=== PATIENT | female | born 1980 | race Hispanic/Latino ===

== ENCOUNTER 2019-01-22 16:13 | Outpatient (CLI) | payer BC ==
--- NOTE | 2019-01-22 16:49 | ULT ---
Ultrasound pelvic transabdominal with Doppler HISTORY: Pelvic pain COMPARISON: None TECHNIQUE: Multiple grayscale and color Doppler images were obtained in a transabdominal pelvic ultra sound. Spectral analysis of the Doppler waveforms of the ovaries were performed. FINDINGS: CERVIX: Unremarkable UTERUS: Normal in size without focal abnormality. ENDOMETRIAL STRIPE: 12 mm. Thickened. No free fluid is present. RIGHT OVARY: Normal flow, without focal mass. Benign-appearing cyst is present. LEFT OVARY: Normal flow, without focal mass. IMPRESSION: Mild thickening of the endometrium. This may be physiologic. Six-week pelvic ultrasound i s recommended for further evaluation.
== END 2019-01-22 16:14 | disposition home or self-care (01) ==
LOC: SCSULT 16:13
PROVIDERS: ATTEND Specialist
DX: R10.2 Pelvic and perineal pain (principal); R93.89 Abnormal findings on diagnostic imaging of other specified body structures
CPT/HCPCS: 76856

== ENCOUNTER 2019-01-26 09:54 | Outpatient (CLI) | payer BC ==
[2019-01-26] MEDS ORDERED: Iopamidol 370 76% 100 ML VIAL ONE (11:23)
--- NOTE | 2019-01-26 14:36 | CT ---
CT abdomen and pelvis with IV and oral contrast HISTORY: Right abdomen pain. FINDINGS: Lung bases are clear. Gallbladder is surgically absent. Solid organs are unremarkable. Urin chance bladder has a normal appearance. Physiologic amount of free fluid within the pelvis. Appendix is not inflamed. In the left upper quadrant, the most proximal portion of the jejunum shows mild luminal expansion. Wa ll is dilated to 0.7 cm thickness and is hyperdense on this portal venous phase imaging.. This extends over a length of approximately 10 cm. There is also very subtle edematous appearance of the gastric antrum with minimal adjacent fluid. IMPRESSION: Wall thickening, hyperemia, and mild luminal distention of the most proximal portion of t he jejunum. Very mild inflammation of the gastric antrum with small amount of adjacent fluid. Inflammation (inflammatory bowel disease) versus neoplasm (small bowel lymphoma) are primary consider ations. Please consider endoscopic evaluation. Hopefully the most proximal portion of the jejunum can be visu alized.
--- NOTE | 2019-01-26 14:37 | CT ---
Exam: CT thoracic spine without contrast HISTORY: Upper abdominal pain. Previous spinal injections. COMPARISON: None FINDINGS: Thoracic spine vertebral body height is maintained. No fracture. No spondylolisthesis or sp ondylolysis. Limited evaluation the contents of the central spinal canal and neural foramina. No significant steno sis or neural foraminal narrowing Visualized mediastinal structures are unremarkable. Visualized lung parenchyma is also unremarkable IMPRESSION: Unremarkable thoracic spine CT. No significant stenosis on this examination, based upon n oncontrast CT limitations
== END 2019-01-26 09:55 | disposition home or self-care (01) ==
LOC: CT 09:54
PROVIDERS: ATTEND Specialist
DX: R10.31 Right lower quadrant pain (principal); K29.60 Other gastritis without bleeding
CPT/HCPCS: 72128; 74177

== ENCOUNTER 2019-01-28 11:14 | Inpatient (IN) | payer BC ==
[2019-01-28] MEDS ORDERED: Morphine 2 MG/ML SYRINGE ONE ×3 (12:27→15:59)
[2019-01-28] MEDS ORDERED: Ketorolac Tromethamine 30 MG/ML VIAL ONE (12:44)
[2019-01-28] MEDS ORDERED: Fentanyl 100 MCG/2 ML VIAL ONE (13:02)
--- NOTE | 2019-01-28 14:47 | RAD ---
Two-view abdomen: Supine and upright views. INDICATIONS: Postop. Contrast is seen throughout the colon. Bowel gas pattern unremarkable. Scattered small bowel gas with out dilatation. No free air apparent. IMPRESSION: No acute finding
[2019-01-28] MEDS ORDERED: Ondansetron PF 4 MG/2 ML Vial IVP PRN ×2 (15:56→16:18)
[2019-01-28] MEDS ORDERED: Ondansetron ODT 4 MG TAB PO PRN (15:56)
[2019-01-28] MEDS ORDERED: Meropenem 2 GM in Sodium Chloride 0.9% 100 ML IVPB SCH (16:15)
[2019-01-28] MEDS ORDERED: Zolpidem Tartrate 5 MG TAB PO PRN (16:18)
[2019-01-28] MEDS ORDERED: Naloxone HCl 0.4 mg/ml Vial IV PRN (16:18)
[2019-01-28] MEDS ORDERED: Promethazine HCl 25 MG/ML VIAL IM PRN (16:18)
[2019-01-28] MEDS ORDERED: fentaNYL Citrate/PF 2,000 MCG in Sodium Chloride 0.9% 60 ML IV PRN (16:18)
[2019-01-28] MEDS ORDERED: diphenhydrAMINE 25 MG CAP PO PRN (16:18)
[2019-01-28] MEDS ORDERED: diphenhydrAMINE 50 MG/ML VIAL IVP PRN (16:18)
[2019-01-28] MEDS ORDERED: diphenhydrAMINE 50 MG/ML VIAL IM PRN (16:18)
[2019-01-28] MEDS ORDERED: Communication Order-Pharmacy FS SCH (16:30)
--- NOTE | 2019-01-28 16:34 | HP ---
CHIEF COMPLAINT: Abdominal pain. HISTORY OF PRESENT ILLNESS: Ms. Dee is a 38-year-old woman, who developed right-sided abdominal pain 2 weeks ago. She complains of an aching to cramping pain that originally started in the right lower quadrant that she thought was an ovarian cyst, but then the pain moved up and settled more in the right upper quadrant underneath the right ribs. The pain is worse when she moves around, but not affected by eating. The pain is not affected by bowel movement. She has a normal soft brown bowel movement daily. She has had no blood in the stool or no black stools. Her weight has been stable. The pain though has been continuous, lasting most of the day and then will exacerbate at times when she moves around or when she sits for longer periods. She has had no fever with this. The pain is affected her ability to exercise and do the things she needs to do. She had blood work and a CT scan to evaluate her pain. The CT scan showed thickening of the proximal most jejunum. GI was asked to evaluate this. PAST MEDICAL HISTORY: Negative. PAST SURGICAL HISTORY: Cholecystectomy, tonsillectomy, and D and C. she had EGD and colonoscopy by Dr. Prasad montnaez in March of 2016 for evaluation of microcytic anemia. The upper and lower endoscopy were normal. Duodenal biopsies were negative for celiac disease. Her anemia since corrected. FAMILY HISTORY: Positive for lung cancer in her mother. Negative for GI malignancy. SOCIAL HISTORY: No alcohol, tobacco, or drugs. ALLERGIES: PREVIOUSLY, SHE HAD MORPHINE LISTED AN ALLERGY. MEDICATIONS: At home, none. REVIEW OF SYSTEMS: Negative x10 systems reviewed except as stated in the history of present illness. PHYSICAL EXAMINATION: GENERAL: She is in no acute distress. Alert and oriented x3. HEENT: Eyes have no scleral icterus. Oropharynx is clear without lesions. NECK: No cervical or supraclavicular lymphadenopathy. LUNGS: Clear to auscultation bilaterally. HEART: Regular rate and rhythm without murmur. ABDOMEN: Mild tenderness in the epigastric region and right upper quadrant without guarding. Bowel sounds are present. ABDOMEN: Nontender in the lower left and mildly tender in the right lower quadrant. The bowel sounds are present. EXTREMITIES: No lower extremity edema. Cranial nerves are grossly intact. LABORATORY DATA: She had blood drawn on 01/26/2019. Her white blood cell count was 9.5, hemoglobin 13.4, platelets 234, and eosinophil count 0.1. Creatinine 0.77, bilirubin 0.2, AST 13, ALT 9, alkaline phosphatase 59, albumin 4.2. test was negative. She had CT scan of the abdomen and pelvis on 01/26/2019 that showed in the left upper quadrant in the most proximal portion of the jejunum showing mild luminal expansion with wall thickening to 0.7 cm and hyperdensity; however, a 10 cm length of jejunum. There was also some subtle edematous appearance to the gastric antrum. Concern for a neoplastic or inflammatory process was raised by the radiologist regarding this. She did have a pelvic ultrasound on 01/22/2019, which showed a benign-appearing cyst in the right ovary and a normal left ovary. She had a thoracic spine CT for further evaluation of the pain, which was normal. IMPRESSION: Epigastric to right upper quadrant abdominal aching pain. This is a continuous pain, but does worsen with movement of her torso and also sitting. The pain is not affected by eating, not affected by bowel movement. She has had no bleeding or diarrhea, constipation, nausea, or vomiting. Her white blood cell count and hemoglobin are normal. This may be more of a musculoskeletal type pain. The findings of the CT are concerning, but we should be able to reach this area with push enteroscopy with upper endoscopy with the colonoscope. This could be artifact or inflammatory process or neoplastic process. She does not take any medications on a regular basis. RECOMMENDATIONS: Push enteroscopy today. Job ID: [id number]
--- NOTE | 2019-01-28 17:11 | OP ---
DATE OF PROCEDURE: 01/28/2019 PROCEDURES PERFORMED: Esophagogastroduodenoscopy with biopsy and push enteroscopy. PREOPERATIVE DIAGNOSES: Right upper quadrant abdominal pain and abnormal CT scan showing thickening of the jejunum in the proximal most jejunum just beyond the duodenum. DESCRIPTION OF PROCEDURE: Informed consent was obtained from the patient. She was sedated with total intravenous anesthesia. The colonoscope was advanced well into the proximal jejunum. The esophagus was normal. The GE junction was normal. There was very mild erosive gastritis in the antrum of the stomach. Biopsies were obtained to rule out H. pylori. Retroflexed views in the stomach were normal. The pylorus and first, second, third, and fourth portions of the duodenum were normal. The proximal jejunum was normal. IMPRESSION: 1. Very mild erosive antral gastritis. Biopsies obtained to rule out Helicobacter pylori. 2. Otherwise, normal esophagogastroduodenoscopy and push enteroscopy to the proximal jejunum. RECOMMENDATIONS: 1. Prilosec [id number] once daily for 2 weeks. 2. Await histopathology. 3. Follow up in GI Clinic with Dr. Parham. Consider capsule endoscopy to evaluate further into the jejunum if her symptoms continue. Overall, I do think that we reached the area that was abnormal by CT and this was endoscopically normal mucosa. Most likely, she had an area of nondistention of the bowel wall at that point. Job ID: [id number]
[2019-01-28] MEDS ORDERED: PROPOFOL 200 MG/20 ML VIAL ONE (17:19)
[2019-01-28] MEDS ORDERED: Lidocaine 1% PF 5 ML VIAL ONE (17:19)
--- NOTE | 2019-01-28 17:34 | HP ---
HISTORY OF PRESENT ILLNESS: Aylin Dee is a 38-year-old female with 2 weeks of abdominal pain. This is described as pressure type pain in her right upper quadrant, right flank, radiating to her pelvis. It was initially thought to be neurogenic. She had a pelvic ultrasound because of her concern of ovarian cyst and this did not reveal any significant findings. She is felt that she might have SI syndrome as some of her pain was in her right flank and lower back and as I examined, it was equivocal, thus she saw Dr. Loi Raymond, who felt her pain was more lower thoracic in distribution. She underwent a nerve block last week without any relief. She continued with pain 2 days later, unrelenting, having difficulty sleeping. This is associated with anorexia and nausea. She then underwent a CAT scan of her thoracic spine and CAT scan of her abdomen and pelvis. CAT scan of her thoracic spine was unremarkable. CAT scan of her abdomen and pelvis, IV and p.o. contrast revealed post cholecystectomy state, wall thickening, hyperemia, mild luminal distention of the most proximal portion of the jejunum, very mild inflammation of the gastric antrum with small amount of adjacent fluid. Concern about inflammatory bowel disease or less likely neoplasia was raised. She had a CBC and comprehensive metabolic profile that were unremarkable. The patient continued to have severe pain despite meloxicam and oral analgesics, thus was brought in today for her unrelenting abdominal pain and right upper quadrant pain and Dr. Bertram Del Toro saw her and upper endoscopy performed without significant finding. She had mild gastritis, biopsy performed to rule out H. pylori. He used a colonoscope to try to visualize the proximal jejunum and there was question whether there was able to visualize the problem in the area, where the radiological abnormality on her CAT scan. Postoperatively, she had a tremendous amount of pain requiring narcotics. With time, this improved and she was back with the pain that she came in for except more severe. She received narcotics, which did not really resolve the pain. Repeat abdominal x-rays flat and upright were obtained revealing lack of constipation, residual contrast in her colon from her CAT scan a few days prior, but no evidence of free air on upright x-ray. The patient is now admitted for pain control [employer]. Diet as tolerated today and plan diagnostic laparoscopy tomorrow to review the proximal small bowel. There is question whether this was addressed endoscopically. This is the only objective abnormality found today. Consideration repeating her abdominal pelvis CAT scan was given, but thought not to have much utility based on the recently normal CT scan done with p.o. and IV contrast and thoracic spine images which as noted above were normal. ALLERGIES: NONE. TOBACCO, NONE. ALCOHOL, RARELY. MEDICATIONS: None routinely. PAST SURGICAL HISTORY: Laparoscopic cholecystectomy. PAST MEDICAL HISTORY: Noncontributory. PHYSICAL EXAMINATION: LUNGS: Clear to auscultation. CARDIAC: Regular rate and rhythm without murmur or gallop. ABDOMEN: Tenderness in her right upper quadrant. She does not have any chest wall tenderness or pain. Thoracolumbar spine without tenderness. SI joint compression does not evoke SI joint type syndrome. EXTREMITIES: Unremarkable. ASSESSMENT AND PLAN: Abdominal pain of uncertain etiology with an abnormal CAT scan noting proximal small-bowel segment, hyperemia and thickening. This is unrelenting after 2 weeks and not explained by her upper endoscopy. Two years ago, Dr. Nuñez saw her for iron-deficiency anemia with upper and lower endoscopy and she was treated with vitamins and iron and this has resolved. Plan diagnostic laparoscopy in the morning and procedure is indicated based on endoscopic findings. She understands risks, benefits, and consents. Job ID: [id number]
[2019-01-28] MEDS: Lactated Ringer's 1,000 ML IV SCH (17:39)
[2019-01-28 17:52] VITALS: BMI 24.7
[2019-01-28] MEDS ORDERED: Acetaminophen 1,000 MG in Premix Bag 1 BAG IVPB SCH (18:00)
[2019-01-28] MEDS ORDERED: Ketorolac Tromethamine 30 MG/ML VIAL IVP SCH (18:00)
[2019-01-28] MEDS: Ketorolac Tromethamine 30 MG/ML VIAL IVP SCH (19:58)
[2019-01-28] MEDS: Acetaminophen 1,000 MG in Premix Bag 1 BAG IVPB SCH (19:58)
[2019-01-28] MEDS: Enoxaparin Sodium 40 MG/0.4 ML SYRINGE SC SCH (19:59)
[2019-01-28 20:28] LABS: Bilirubin Negative (Negative); Blood, Urine Negative (Negative); Clarity CLEAR (Clear); Glucose, Urine (Dipstick) Negative (Negative); Leukocyte Trace (Negative); Nitrite Negative (Negative); Protein, Urine (Dipstick) Negative (Neg-Trace); Specific Gravity, Urine 1.014 (1.002-1.036); Urobilinogen 0.2 mg/dL (0.2-1.0); pH, Urine 6.5 (5.0-9.0)
[2019-01-28 20:32] LABS: Bacteria/HPF None Seen HPF (None Seen); Hyaline Casts/LPF 0-3 HYALINE CAST LPF (0-3 Hyaline); Pathc Cast-AUWi Flag 0.27 (0-2.49); Squamous Epithelial 0-3 HPF (0-3); WBC/HPF 0-3 HPF (0-3)
[2019-01-29] MEDS: Acetaminophen 1,000 MG in Premix Bag 1 BAG IVPB SCH ×2 (02:01→07:12)
[2019-01-29] MEDS: Ketorolac Tromethamine 30 MG/ML VIAL IVP SCH ×2 (02:01→07:12)
[2019-01-29] MEDS ORDERED: Fentanyl 100 MCG/2 ML VIAL ONE ×2 (06:23→08:26)
[2019-01-29] MEDS ORDERED: Lidocaine 2% Jelly 5 ML TUBE ONE (06:23)
[2019-01-29] MEDS ORDERED: Ketorolac Tromethamine 30 MG/ML VIAL ONE (06:35)
[2019-01-29] MEDS ORDERED: Bupivacaine HCl 0.5%/Epinephrine 1:200,000/PF 30 ml Vial ONE (06:41)
[2019-01-29] MEDS ORDERED: traMADol HCl 50 MG TAB PO PRN ×2 (08:06)
[2019-01-29] MEDS ORDERED: Ketorolac Tromethamine 30 MG/ML VIAL IVP PRN (08:10)
[2019-01-29] MEDS ORDERED: Promethazine HCl 25 MG/ML VIAL IM PRN (08:18)
[2019-01-29] MEDS ORDERED: Ondansetron HCl/PF 4 MG/2 ML Vial IVP PRN (08:18)
[2019-01-29] MEDS ORDERED: Promethazine HCl 25 MG/ML VIAL SLOW IVP PRN (08:18)
[2019-01-29] MEDS ORDERED: Pantoprazole 40 MG VIAL IVP SCH (09:00)
--- NOTE | 2019-01-29 10:13 | OP ---
DATE OF PROCEDURE: 01/29/2019 PREOPERATIVE DIAGNOSES: Abdominal pain, abnormal CAT scan with proximal small- bowel wall thickening and hyperemia. POSTOPERATIVE DIAGNOSES: Abdominal pain, abnormal CAT scan with proximal small-bowel wall thickening and hyperemia without abnormal finding. PROCEDURES PERFORMED: Diagnostic laparoscopy running the entire small bowel from the ligament of Treitz to the cecum, terminal ileum, noting normal appendix, normal ovaries, normal uterus and visceral structures. ANESTHESIA: General, local 0.5% Marcaine with epinephrine, 30 mL. DESCRIPTION OF PROCEDURE: The patient was taken to the operating room under general anesthesia, supine position, abdomen was prepared with ChloraPrep and draped in routine fashion. Local anesthetic was infiltrated in the skin and subcutaneous tissue about each port site. Left lateral stab incision made, subcostal and pneumoperitoneum to 15 mmHg obtained with a Veress needle, replaced with a 5 port and laparoscope inserted. Remainder of the port sites were placed under laparoscopic visualization. Left lateral mid abdominal incision made and a 5 port placed. Left lower quadrant lateral incision made and a 5 port placed. The cecum was identified. Appendix was long, but normal. Terminal ileum was identified and followed proximally to the ligament of Treitz, carefully inspecting the small bowel and noting small bowel to be entirely normal. I could see unusually more of the duodenum and proximal jejunum than usual due to her lack of intraabdominal fat. The proximal jejunum and fourth portion of the duodenum were normal. There were no abnormalities. There were no masses, no induration, no serosal abnormalities. I then visualized her ovaries, which appeared normal. She did have a small amount of fluid in her abdominal cavity, which was aspirated. The right colon appeared to be normal. Transverse colon proximally seemed to be normal. Status post cholecystectomy and subhepatic space could be seen without any adhesions. There were no perihepatic adhesions. The patient tolerated the procedure well. Pneumoperitoneum and fluid were evacuated. Prior to evacuating pneumoperitoneum , there was a small cyst on the right ovary, which was cauterized and drained, but otherwise normal. There was good hemostasis noted and all pneumoperitoneum and fluid evacuated. All instruments were removed and all skin incisions were approximated with interrupted subdermal 4-0 Monocryl and [place] glue applied. Job ID: [id number] [facility]
[2019-01-29] MEDS: Lactated Ringer's 1,000 ML IV SCH (14:55)
[2019-01-29] MEDS ORDERED: Lidocaine 5% Patch TD SCH (15:15)
[2019-01-29] MEDS ORDERED: GoLYTELY 4,000 ml Bottle PO SCH (17:45)
[2019-01-29] MEDS: Enoxaparin Sodium 40 MG/0.4 ML SYRINGE SC SCH (20:33)
[2019-01-29] MEDS: Acetaminophen 500 MG TAB PO PRN (20:33)
[2019-01-29] MEDS: Ibuprofen 600 MG TAB PO PRN (20:33)
[2019-01-29] MEDS ORDERED: Polyethylene Glycol 3350 17 GM Packet PO SCH (21:00)
[2019-01-30] MEDS ORDERED: Lidocaine Patch Removal 1 EACH TOP SCH ×2 (03:15→21:00)
[2019-01-30] MEDS: Ibuprofen 600 MG TAB PO PRN (05:05)
[2019-01-30] MEDS: Acetaminophen 500 MG TAB PO PRN (05:05)
[2019-01-30 08:24] VITALS: BP 108/65; TEMP 98.2
[2019-01-30] MEDS ORDERED: Lidocaine 5% Patch TD SCH (09:00)
--- NOTE | 2019-01-31 03:08 | DIS ---
DATE OF ADMISSION: 01/28/2019 DATE OF DISCHARGE: 01/30/2019 DISCHARGE DIAGNOSES: 1. Right abdominal pain, right flank, right upper quadrant, radiating to right lateral abdomen and pelvis initially, now more localized to her right lateral lower chest wall and right upper quadrant. 2. Abnormal CAT scan suggesting hyperemic, thickened wall proximal jejunum just beyond the ligament of Treitz. CONSULTATION: Dr. Del Toro. PROCEDURES: Outpatient, she had a CAT scan of the abdomen and pelvis suggesting a hyperemic area, proximal jejunum. EGD. Dr. Del Toro using a colonoscope, visualizing the upper gastrointestinal tract without abnormalities. Biopsy, H pylori pending. Antral mild gastritis, placed on PPI. Laparoscopy, diagnostic to look at the proximal jejunum, which was completely normal. There are no abnormalities and this radiological finding can be dismissed. Discharge home with the lidocaine patch topical, right lateral chest wall and we will discuss with Dr. Loi Raymond of Pain Management that other patches that may benefit her. HISTORY: A 38-year-old female, 2 weeks of abdominal pain, treated as an outpatient, undergoing a pelvic ultrasound initially that was negative. Her pelvic pain component resolved. She had disabling pain, right abdomen interfering with her lifestyle. She had anorexia and nausea. She underwent a CAT scan of the abdomen and pelvis and a CT scan thoracic spine after nerve block lower thoracic by Dr. Raymond, did not relieve her pain. This CAT scan suggests an abnormality of the proximal jejunum with thickened wall beyond the ligament of Treitz and hyperemic malignancy could not be ruled out. She had unrelenting pain, following was admitted on Tuesday morning, underwent upper endoscopy with a colonoscope with Dr. Bertram Del Toro and upper gastrointestinal tract was normal except for minimal gastritis for which she is started on a PPI. Biopsies, H pylori are pending. Her pain persisted and she was hospitalized after this due to severe intractable pain. She then underwent diagnostic laparoscopy that was completely normal. The upper gastrointestinal tract was normal. The proximal bowel could be seen more readily than normal due to the paucity of intraabdominal fat due to her healthy lifestyle. There were no abnormalities. Small bowel was run in its entirety. After this, it was clear that she did have some retained stool in the right colon. She underwent a GoLYTELY bowel prep. This cleaned her out completely and had excellent response from the GoLYTELY, but it did not relieve her pain. The lidocaine 5% patch did help her pain, however. This dulled the pain and would become more tolerable once it wore off and was removed. Her pain returned. She has been discharged home at this time with pain management, Tylenol, ibuprofen, tramadol, and meloxicam as needed. I will discuss with Dr. Raymond of patch management and the best patch for her and called that into her pharmacy at a later date. She will follow up in my office in 1 to 2 weeks. Diet and activity as tolerated. Job ID: [id number]
== END 2019-01-30 10:10 | disposition home or self-care (01) | DRG 358 ==
LOC: SDC 11:14 → SURG B 15:56
PROVIDERS: ADMIT Specialist; ATTEND Specialist
PROC: 0DB78ZX Excision of Stomach, Pylorus, Via Natural or Artificial Opening Endoscopic, Diagnostic (ICD-10-PCS; 2019-01-28)
PROC: 0DJD8ZZ Inspection of Lower Intestinal Tract, Via Natural or Artificial Opening Endoscopic (ICD-10-PCS; 2019-01-28)
PROC: 0W9G4ZX Drainage of Peritoneal Cavity, Percutaneous Endoscopic Approach, Diagnostic (ICD-10-PCS; principal; 2019-01-29)
PROC: 0U504ZZ Destruction of Right Ovary, Percutaneous Endoscopic Approach (ICD-10-PCS; 2019-01-29)
DX: R10.11 Right upper quadrant pain (principal); K29.60 Other gastritis without bleeding; N83.201 Unspecified ovarian cyst, right side; K56.41 Fecal impaction; Z90.49 Acquired absence of other specified parts of digestive tract; Z80.1 Family history of malignant neoplasm of trachea, bronchus and lung; Z88.8 Allergy status to other drugs, medicaments and biological substances
CPT/HCPCS: 36415; 72128; 74019; 74177; 80053; 81001; 84702; 84703; 85025; 88305; 88312; J0131; J0670; J1650; J1885; J2001; J2185; J2270; J2704; J3010; J3490; Q0162; Q9967

== ENCOUNTER 2019-05-22 10:45 | Outpatient (CLI) | payer BC ==
--- NOTE | 2019-05-22 11:51 | MMO ---
Bilateral MAMMO Bilat Screen [facility]. CLINICAL HISTORY: Patient is 39 years old and is seen for screening. The patient has no family history of breast cancer. The patient has no personal history of cancer. VIEWS: The views performed were: bilateral craniocaudal with tomosynthesis and bilateral mediolateral oblique with tomosynthesis. MAMMOGRAM FINDINGS: The breasts are heterogeneously dense, which could obscure a lesion on mammography. There are no suspicious masses, suspicious calcifications, or new areas of architectural distortion. IMPRESSION: THERE IS NO MAMMOGRAPHIC EVIDENCE OF MALIGNANCY. A ROUTINE FOLLOW-UP MAMMOGRAM IN 1 YEAR IS RECOMMENDED. THE RESULTS OF THIS EXAM WERE SENT TO THE PATIENT. ACR BI-RADS Category 1 - Negative MAMMOGRAPHY NOTE: 1. A negative mammogram report should not delay a biopsy if a dominant of clinically suspicious mass is present. 2. Approximately 10% to 15% of breast cancers are not detected by mammography. 3. Adenosis and dense breasts may obscure an underlying neoplasm. Reported by: JOHN BAIN MD Electonically Signed: [id number]
== END 2019-05-22 10:46 | disposition home or self-care (01) ==
LOC: BICMAMMO 10:45
PROVIDERS: ATTEND Obstetrics & Gynecology
DX: Z12.31 Encounter for screening mammogram for malignant neoplasm of breast (principal)
CPT/HCPCS: 77063; 77067

== ENCOUNTER 2021-05-20 13:03 | Outpatient (CLI) | payer BC | END 2021-05-20 13:04 | disposition home or self-care (01) | LOC: BICMAMMO 13:03 | PROVIDERS: ATTEND Obstetrics & Gynecology | DX: Z12.31 Encounter for screening mammogram for malignant neoplasm of breast (principal) | CPT/HCPCS: 77063; 77067 ==

== ENCOUNTER 2022-06-15 10:20 | Outpatient (CLI) | payer OTHER | END 2022-06-15 10:21 | disposition home or self-care (01) | LOC: BICMAMMO 10:20 | PROVIDERS: ATTEND Internal Medicine | DX: N63.21 Unspecified lump in the left breast, upper outer quadrant (principal) | CPT/HCPCS: G0279 ==